=== PATIENT | male | born 1995 | race Caucasian/White ===

== ENCOUNTER 2016-12-03 08:22 | Emergency (ER) | payer SELFPAY ==
[~2016-12-03] VITALS: Ht 165.1 cm; Wt 54.4 kg
[~2016-12-03 08:22] MED LIST: AZIT250T PO; HYDR-971 PO; ONDA4TAB10 PO
[2016-12-03 08:40] VITALS: BP 122/60
[2016-12-03] MEDS ORDERED: ONDANSETRON ODT 4 MG TAB.RAPDIS. PO ONE (09:00)
[2016-12-03] MEDS ORDERED: KETOROLAC TROMETHAMINE 60 MG/2 ML INJ. IM ONE (09:00)
[2016-12-03] MEDS ORDERED: diphenhydrAMINE 50 MG/ML VIAL IM ONE (09:00)
[2016-12-03] MEDS ORDERED: ONDANSETRON PF 4 MG/2 ML VIAL. IM ONE (09:00)
[2016-12-03] MEDS ORDERED: PENI500T PO (09:12)
[2016-12-03] MEDS ORDERED: NAPR500T PO (09:12)
[2016-12-03] MEDS ORDERED: ACET325T9 PO (09:12)
[2016-12-03] MEDS ORDERED: ONDA4TAB10 PO (09:12)
--- NOTE | 2016-12-03 09:14 | PHYS DOC ---
Past Medical History Past Medical History: Asthma, Gallstones, IBS, Migraines Past Surgical History: Appendectomy, Cholecystectomy, Tonsillectomy Additional Past Surgical Histo: TUBES IN EARS Alcohol Use: None Drug Use: None Adult General Chief Complaint Chief Complaint: Toothache [facility] HPI Patient is a 21 year old male with a history of migraines presents with a migraine that began yesterday and is typical location the posterior parietal lobe of his left side described as a throbbing aching dull without radiation. He describes mild photophobia, audiophobia mild nausea with symptoms. It is not worse of life or sudden onset. Patient denies any recent URI symptoms, fevers, chills, earache or ear pain. He'll still denies any tetanus is or hearing loss. He admits that he was eating some food yesterday while at a family event when he felt increased pressure on his left upper tooth. He denies any localized swelling change in voice or other symptoms other than the pain is worse with cold foods. he repots he does not smoke is not allergic to any medications. His migraines typically are affected possibly by Benadryl and Toradol here in the emergency department he comes in very empirically for treatments. He has seen a neurologist in the past for his symptoms Review of Systems Review of Systems Constitutional: Denies fever or chills [] Eyes: Denies change in visual acuity, redness, or eye pain [] HENT: Denies nasal congestion or sore throat has component of dental pain on the left. Without swelling to the face or change in voice. Respiratory: Denies cough or shortness of breath [] Cardiovascular: No additional information not addressed in HPI [] GI: Denies abdominal pain, he does describe a little bit of nausea without vomiting diarrhea constipation. [] : Denies dysuria or hematuria [] Musculoskeletal: Denies back pain or joint pain [] Integument: Denies rash or skin lesions [] Neurologic: focal weakness or sensory changes, does complain of his typical headache is not worse of life and not sudden onset [] Endocrine: Denies polyuria or polydipsia [] Allergies Allergies Allergies Coded Allergies Type Severity Reaction Last Updated Verified No Known Drug Allergies 09/16/15 No Physical Exam Physical Exam Constitutional: Well developed, well nourished, no acute distress, non-toxic appearance. [] HENT: Normocephalic, atraumatic, bilateral external ears normal, oropharynx moist, no oral exudates, nose normal. He does have extensive dental carry specific and tooth #15 that is tender to palpation with no evidence of buccal swelling, gingival swelling or, gingival infection. This is significant cerumen in each ear bilaterally Eyes: PERRLA, EOMI, conjunctiva normal, no discharge. [] Neck: Normal range of motion, no tenderness, supple, no stridor. [] Cardiovascular:Heart rate regular rhythm, no murmur [] Lungs & Thorax: Bilateral breath sounds clear to auscultation [] Skin: Warm, dry, no erythema, no rash Neurologic: Alert and oriented X 3, normal motor function, normal sensory function, no focal deficits noted. [] Psychologic: Affect normal, judgement normal, mood normal. [] Current Patient Data Vital Signs Vital Signs Date Time Temp Pulse Resp B/P (MAP) Pulse Ox O2 Delivery O2 Flow Rate FiO2 12/03/16 08:40 97.7 57 16 100 Room Air 97.7 EKG EKG [] Radiology/Procedures Radiology/Procedures [] Course & Med Decision Making Course & Med Decision Making Pertinent Labs and Imaging studies reviewed. (See chart for details) Reviewed patient's nursing notes, vital signs, prior records and his history and physical. I'm convinced that this is a typical migraine for this patient and dental carry not requiring any specific intervention at this point other than antibiotics and pain control. He'll be offered these control efforts and follow-up with a dentist for treatment. [] Dragon Disclaimer Dragon Disclaimer This electronic medical record was generated, in whole or in part, using a voice recognition dictation system. Departure Departure Impression: Primary Impression: Migraine headache Additional Impression: Dental caries Disposition: HOME, SELF-CARE Condition: IMPROVED Referrals: NO PCP (PCP) Patient Instructions: Dental Caries, Migraine Headache Additional Instructions: Is return for any new or increasing symptoms, advise a follow-up with your dentist for definitive treatment of the dental. Of tooth #15. Please return for any new question she might have or concerns might have. Scripts Ondansetron (ZOFRAN ODT) 4 Mg Tab.rapdis 4 MG PO BID Y for NAUSEA/VOMITING for 5 Days, #10 TAB Prov: NGUYEN LOOMIS MD 12/03/16 Acetaminophen (TYLENOL) 325 Mg Tablet 1-2 TAB PO QID, #60 TAB 2 Refills Prov: NGUYEN LOOMIS MD 12/03/16 Penicillin V Potassium (PENICILLIN V POTASSIUM) 500 Mg Tablet 1 TAB PO QID, #40 TAB Prov: NGUYEN LOOMIS MD 12/03/16 Naproxen (NAPROSYN) 500 Mg Tablet 1 TAB PO BID, #14 TAB 1 Refill Prov: NGUYEN LOOMIS MD 12/03/16 Problem Qualifiers NGUYEN LOOMIS MD Dec 03, 2016 09:14
== END 2016-12-03 09:25 | disposition home or self-care (01) ==
LOC: ER 08:22
DX: G43.909 Migraine, unspecified, not intractable, without status migrainosus (principal); K02.9 Dental caries, unspecified; J45.909 Unspecified asthma, uncomplicated; K58.9 Irritable bowel syndrome, unspecified; Z96.22 Myringotomy tube(s) status; Z90.49 Acquired absence of other specified parts of digestive tract
CPT/HCPCS: 96372; 99284; J1200; J1885; Q0162

== ENCOUNTER 2017-08-19 20:05 | Emergency (ER) | payer SELFPAY | END 2017-08-19 20:30 | disposition home or self-care (01) | LOC: ER 20:05 | DX: K04.7 Periapical abscess without sinus (principal); K02.9 Dental caries, unspecified; J45.909 Unspecified asthma, uncomplicated; K58.9 Irritable bowel syndrome, unspecified; G43.909 Migraine, unspecified, not intractable, without status migrainosus; Z90.49 Acquired absence of other specified parts of digestive tract; Z96.22 Myringotomy tube(s) status | CPT/HCPCS: 99283 ==

== ENCOUNTER 2018-05-29 20:16 | Emergency (ER) | payer SELFPAY ==
[~2018-05-29] VITALS: Ht 170.2 cm; Wt 54.4 kg
[~2018-05-29 20:16] MED LIST changes: +ACET325T9 PO; +HYDR-3164 PO; -HYDR-971 PO; +NAPR-683 PO; +PENI500T PO
[2018-05-29 20:36] VITALS: BP 108/57
[2018-05-29] MEDS ORDERED: HYDR-3164 PO (20:42)
[2018-05-29] MEDS ORDERED: IBUP-1007 PO (20:42)
[2018-05-29] MEDS ORDERED: PENI500T PO (20:42)
--- NOTE | 2018-05-29 20:42 | PHYS DOC ---
Past Medical History Past Medical History: Asthma, Gallstones, IBS, Migraines Past Surgical History: Appendectomy, Cholecystectomy, Tonsillectomy Additional Past Surgical Histo: TUBES IN EARS Alcohol Use: None Drug Use: None Adult General Chief Complaint Chief Complaint: DENTAL PROBLEM HPI HPI Patient is a 22 year old male who presents with left lower dental caries and dental pain with left lower face swelling times a week. Afebrile. States he vomited a couple times and he does chew tobacco. Review of Systems Review of Systems Constitutional: Denies fever or chills [] Eyes: Denies change in visual acuity, redness, or eye pain [] HENT: Dental pain and dental cavities. Denies nasal congestion or sore throat [] Respiratory: Denies cough or shortness of breath [] Cardiovascular: No additional information not addressed in HPI [] GI: Denies abdominal pain, nausea, vomiting, bloody stools or diarrhea [] : Denies dysuria or hematuria [] Musculoskeletal: Denies back pain or joint pain [] Integument: Denies rash or skin lesions [] Neurologic: Denies headache, focal weakness or sensory changes [] Endocrine: Denies polyuria or polydipsia [] All other systems were reviewed and found to be within normal limits, except as documented in this note. Current Medications Current Medications Current Medications Medications (Trade) Dose Ordered Sig/[place] Start Time Stop Time Status Last Admin Dose Admin Acetaminophen/ Hydrocodone Bitart (Lortab 5/325) 1 tab 1X ONCE 05/29/18 21:30 05/29/18 21:30 DC 05/29/18 20:56 1 TAB Allergies Allergies Allergies Coded Allergies Type Severity Reaction Last Updated Verified No Known Drug Allergies 09/16/15 No Physical Exam Physical Exam Constitutional: Well developed, well nourished, no acute distress, non-toxic appearance. [] HENT: Normocephalic, atraumatic, bilateral external ears normal, oropharynx moist, no oral exudates, nose normal. Left lower Dental caries and dental abscess. [] Eyes: PERRLA, EOMI, conjunctiva normal, no discharge. [] Neck: Normal range of motion, no tenderness, supple, no stridor. [] Cardiovascular:Heart rate regular rhythm, no murmur [] Lungs & Thorax: Bilateral breath sounds clear to auscultation [] Abdomen: Bowel sounds normal, soft, no tenderness, no masses, no pulsatile masses. [] Skin: Warm, dry, no erythema, no rash. [] Back: No tenderness, no CVA tenderness. [] Extremities: No tenderness, no cyanosis, no clubbing, ROM intact, no edema. [] Neurologic: Alert and oriented X 3, normal motor function, normal sensory function, no focal deficits noted. [] Psychologic: Affect normal, judgement normal, mood normal. [] Current Patient Data Vital Signs Vital Signs Date Time Temp Pulse Resp B/P (MAP) Pulse Ox O2 Delivery O2 Flow Rate FiO2 05/29/18 20:36 97.9 55 16 108/57 (74) 99 Room Air 97.9 EKG EKG [] Radiology/Procedures Radiology/Procedures [] Course & Med Decision Making Course & Med Decision Making Patient is a 22 year old male who presents with left lower dental caries and dental pain with left lower face swelling times a week. Afebrile. States he vomited a couple times and he does chew tobacco. Patient states he has a hard time eating any food due to the pain. He states he hasn't taken anything for the pain. Patient states he can't afford any medications and wanted us to give him medication so he doesn't get prescriptions filled. Patient is told that we do not have medication samples and has a port in that he does get his antibiotic filled due to he will become very sick and not getting any better. Patient's gum line is swollen and reddened. His left lower face is swollen. There is no redness or cellulitis or abscesses inside the mouth. Patient has several dental caries and broken teeth. Patient is asking for IV antibiotics and pain medications. Patient is given resources for dental care. Patient is given a dose of pain medication before he leaves. Patient is given prescription for pain medication and penicillin. Alert and oriented. Skin pink warm and dry. Ambulatory with a steady gait. Afebrile. Vital signs within normal limits. Patient is stable and in no distress. Dragon Disclaimer Dragon Disclaimer This electronic medical record was generated, in whole or in part, using a voice recognition dictation system. Departure Departure Impression: Primary Impression: Dental abscess Additional Impression: Dental caries Disposition: 01 HOME, SELF-CARE Condition: STABLE Referrals: NO PCP (PCP) Patient Instructions: Dental Abscess, Dental Caries Additional Instructions: CALL A DENTIST TOMORROW. TAKE MEDICATIONS PRESCRIBED. Scripts Penicillin V Potassium (PENICILLIN V POTASSIUM) 500 Mg Tablet 1 TAB PO QID, #40 TAB Prov: EAGLE BARTHOLOMEW APRN 05/29/18 Hydrocodone/Apap 5-325 (NORCO 5-325 TABLET) 1 Each Tablet 1 TAB PO PRN Q6HRS PRN for PAIN, #15 TAB 0 Refills Prov: EAGLE BARTHOLOMEW APRN 05/29/18 Ibuprofen (IBUPROFEN) 600 Mg Tablet 600 MG PO PRN Q6HRS PRN for INFLAMMATION, #20 TAB Prov: EAGLE BARTHOLOMEW APRN 05/29/18 Problem Qualifiers EAGLE BARTHOLOMEW APRN May 29, 2018 20:42
[2018-05-29] MEDS ORDERED: HYDROcodone/APAP 5/325MG 1 TAB TABLET PO ONE (21:30)
== END 2018-05-29 21:11 | disposition home or self-care (01) ==
LOC: ER 20:43
DX: K04.7 Periapical abscess without sinus (principal); K02.9 Dental caries, unspecified; J45.909 Unspecified asthma, uncomplicated; G43.909 Migraine, unspecified, not intractable, without status migrainosus; Z90.49 Acquired absence of other specified parts of digestive tract
CPT/HCPCS: 99283